=== PATIENT | female | born 1970 | race Caucasian/White ===

== ENCOUNTER 2018-01-20 09:36 | Outpatient (CLI) | payer OTHER | END 2018-01-20 09:37 | disposition home or self-care (01) | LOC: BICMAMMO 09:36 | DX: Z12.31 Encounter for screening mammogram for malignant neoplasm of breast (principal); Z80.3 Family history of malignant neoplasm of breast | CPT/HCPCS: 77067 ==

== ENCOUNTER 2018-08-31 07:43 | Outpatient (CLI) | payer OTHER ==
--- NOTE | 2018-08-31 09:03 | ULT ---
THYROID ULTRASOUND: HISTORY: Goiter. Thyroid nodules. COMPARISON: None. FINDINGS: Thyroid isthmus measures 0.6 cm. The right thyroid lobe measures 1.9 x 4.6 x 1.9 cm. The left thyro id lobe measures 4.7 x 1.6 x 1.8 cm. Right thyroid lobe demonstrates multiple mixed echotexture nodules. The largest nodule is in the low er pole of the right thyroid lobe measuring 2.8 x 2.0 x 1.4 cm. This nodule is predominantly cystic and has internal septations. In the left thyroid lobe, there are multiple solid and cystic nodules. The largest solid nodule is i n the mid portion of the left thyroid lobe measuring 1.5 x 1.7 x 1.2 cm. There appear to be associat ed punctate calcifications. There is a mixed solid and cystic nodule in the thyroid isthmus measurin g 0.8 x 1.3 x 0.9 cm. IMPRESSION: Multinodular thyroid gland. Solid nodule in the left thyroid lobe has a TIRADS level of TR4. Given the size of the lesion, fine needle aspiration is recommended. Additional nodules should be followup in 1 year. POS: ANASTASIA
--- NOTE | 2018-09-01 10:09 | NM ---
RADIOIODINE THYROID UPTAKE AND SCAN: HISTORY: A 48-year-old female with nontoxic goiter, unspecified. Thyroid function tests on 08/18/2018 were TSH 0.03 (low), free T4 1.1 (normal), and free T3 4.2 (upper limits of normal). RADIOPHARMACEUTICAL: 260 mCi Iodine 123 administered orally. FINDINGS: There is heterogeneous tracer distribution to both lobes of the thyroid gland with a focal area of in creased tracer localization in the inferior pole of the left lobe. The 24-hour uptake measures 32.77% (normal 10-30%). IMPRESSION: Multinodular goiter with elevated 24-hour radioiodine uptake. POS: ANASTASIA
== END 2018-08-31 07:44 | disposition home or self-care (01) ==
LOC: ULT 07:43
DX: E05.90 Thyrotoxicosis, unspecified without thyrotoxic crisis or storm (principal); E04.9 Nontoxic goiter, unspecified; E04.2 Nontoxic multinodular goiter; R94.8 Abnormal results of function studies of other organs and systems
CPT/HCPCS: 76536; 78014; A9516

== ENCOUNTER 2018-09-26 12:19 | Day surgery (SDC) | payer OTHER ==
[2018-09-23 12:06] VITALS: BMI 32.3
[2018-09-26] MEDS ORDERED: Sodium Bicarbonate 2.5 MEQ/5 ML VIAL ONE (12:43)
--- NOTE | 2018-09-26 15:36 | ULT ---
ULTRASOUND GUIDED LEFT AND RIGHT THYROID FNA: INDICATIONS: Suspicious thyroid lesion seen within the right and left thyroid gland. COMPARISON: Thyroid ultrasound dated 08/31/2018. TECHNIQUE: Informed consent was obtained. Pre-procedure ultrasound demonstrated the largest suspicious lesions within the right and left thyroi d gland. The suspicious lesion identified within the left thyroid gland is seen within the mid to inferior eugenia e of the left thyroid gland, measuring 2.4 x 1.3 cm. This is a well circumscribed, hypoechoic, solid nodule that is wider than tall but contains small microcalcifications. This was a suspicious TI-RAD S 4 lesion, identified on the prior thyroid ultrasound. The largest, most suspicious lesion was identified within the right thyroid lobe, and corresponds to a mixed cystic and solid lesion within the mid to inferior pole of the right thyroid gland. This les ion measured approximately 2.8 x 1.4 cm. Attention was first paid to the most suspicious solid lesion within the left thyroid gland, with asso ciated microcalcifications. The site overlying the left thyroid gland was prepped and draped in the usual sterile fashion. Buffered 1% Lidocaine was administered to the overlying subcutaneous tissue. Under ultrasound guidance, four separate 25 gauge needles were guided into the lesion and four separ ate FNA samples were obtained. Pressure was held at the biopsy site until hemostasis was obtained. No intraparenchymal hematoma was evident. Attention was then turned to the most suspicious mixed solid and cystic nodule, within the mid to inf erior pole of the right thyroid gland. This site was anesthetized utilizing 1% Lidocaine. A 25 gaug e needle was guided down to the lesion, and four separate FNA samplings were obtained of this lesion. Pressure was held at the biopsy site until hemostasis was obtained. Post procedural images demonstrated no significant intraparenchymal hematoma. The patient tolerated both FNA samplings without difficulty. IMPRESSION: Successful ultrasound guided fine needle aspiration of the largest suspicious lesion within the left thyroid gland and the largest suspicious lesion within the right thyroid gland. POS: ANASTASIA
== END 2018-09-26 14:30 | disposition home or self-care (01) ==
LOC: ULT 12:19
PROC: 0G9H3ZX Drainage of Right Thyroid Gland Lobe, Percutaneous Approach, Diagnostic (ICD-10-PCS; principal; 2018-09-26)
PROC: 0G9G3ZX Drainage of Left Thyroid Gland Lobe, Percutaneous Approach, Diagnostic (ICD-10-PCS; principal; 2018-09-26)
DX: E05.20 Thyrotoxicosis with toxic multinodular goiter without thyrotoxic crisis or storm (principal); I10 Essential (primary) hypertension; F41.9 Anxiety disorder, unspecified; Z79.899 Other long term (current) drug therapy
CPT/HCPCS: 60100; 76942; 88173

== ENCOUNTER 2018-10-05 12:00 | Outpatient (CLI) | payer OTHER ==
--- NOTE | 2018-10-05 15:52 | NM ---
NUCLEAR MEDICINE THYROID I 131 INITIAL TREATMENT: Date: 10/05/18 HISTORY: 48-year-old female with multinodular goiter and elevated 24 hour radioiodine uptake. FINDINGS/IMPRESSION: After discussing the risks, benefits, alternatives, and radiation precaution issues with the patient, written and verbal consent was obtained for administration of radioiodine therapy. The patient verba lized understanding. 24.2 mCi Iodin-131 was administered orally without complications. The patient will follow up with her physician in 3-4 weeks. POS: ANASTASIA
== END 2018-10-05 12:01 | disposition home or self-care (01) ==
LOC: NM 12:00
DX: E05.90 Thyrotoxicosis, unspecified without thyrotoxic crisis or storm (principal)
CPT/HCPCS: 79005; A9517